=== PATIENT | male | born 1955 | race Caucasian/White ===

== ENCOUNTER 2021-03-19 02:18 | Inpatient (IN) | payer OTHER ==
[~2021-03-19] VITALS: Ht 152.4 cm; Wt 57.8 kg
[2021-03-19] VITALS (9 sets, daily range): BP systolic 86–116; BP diastolic 43–79
[2021-03-19 03:08] LABS: ABG A-A DIFF O2 85.1 mmHg (10-20.0); ABG BASE EXCESS -8.3 mmol/L (-2.0-3.0); ABG CARBOXYHEMOGLOBIN 1.2 % (0.0-1.5); ABG HCO3 18.2 mmol/L (22.0-26.0); ABG METHEMOGLOBIN 0.3 % (0.0-1.5); ABG OXYGEN CONTENT 14.7 mL/dL (15.0-23.0); ABG OXYHEMOGLOBIN 53.1 % (94.0-100.0); ABG PCO2 30 mmHg (35-45); ABG PH 7.369 (7.35-7.450); ABG TOTAL HEMOGLOBIN 19.8 G/dL (12.0-18.0); SOURCE, BLOOD GAS ARTERIAL; TEMPERATURE, FAHRENHEIT, BG 98.6 FAHREN (96.0-98.6)
[2021-03-19 03:09] LABS: ABG OXYGEN SATURATION 53.9 % (95.0-98.0); PO2, ARTERIAL BG 28.5 mmHg (79.0-87.0); SITE, BLOOD GAS RT RADIAL
[2021-03-19 03:27] LABS: BASOPHILS % (AUTO) 0.6 % (0.0-2.0); EOSINOPHILS % (AUTO) 0.1 % (1.0-6.0); HEMOGLOBIN 18.4 g/dL (13.5-17.5); LYMPHOCYTES # (AUTO) 1.2 K/uL (1.0-4.8); LYMPHOCYTES % (AUTO) 12.8 % (22.0-44.0); MEAN CORPUSCULAR HEMOGLOBIN 30.7 pg (26.0-34.0); MEAN CORPUSCULAR HGB CONC 32.7 G/dL (31.0-37.0); MEAN CORPUSCULAR VOLUME 94 fL (80-100); MONOCYTES # (AUTO) 0.9 K/uL (0.1-1.0); MONOCYTES % (AUTO) 9.7 % (2.0-9.0); NEUTROPHILS # (AUTO) 7.3 K/uL (1.8-7.7); NEUTROPHILS % (AUTO) 76.8 % (40.0-70.0); PLATELET COUNT (AUTO) 145 K/uL (150-450); RED BLOOD CELL COUNT(AUTO) 6.01 MIL/uL (4.50-5.90)
[2021-03-19 03:28] LABS: COVID AG,FIA SOURCE NASOPHARYNGEAL
[2021-03-19] MEDS ORDERED: DEXAMETHASONE SOD PHOS 4 MG/ML VIAL IVP ONE (03:30)
[2021-03-19] MEDS ORDERED: ACETAMINOPHEN 325 MG TABLET PO PRN ×2 (03:30→21:00)
[2021-03-19] MEDS ORDERED: ONDANSETRON HCL 4 MG/2 ML VIAL IVP PRN ×2 (03:30→21:00)
[2021-03-19 03:38] LABS: HEMATOCRIT 56.3 % (41-53)
[2021-03-19 03:39] LABS: ANION GAP 16 mmol/L (8-16); CALCIUM, TOTAL 8.7 mg/dL (8.8-10.5); CARBON DIOXIDE 21 mmol/L (22-29); CHLORIDE 101 mmol/L (98-107); CREATININE 2.63 mg/dL (0.60-1.30); GLOMERULAR FILTR. RATE CALC 24 mL/min (>60); GLUCOSE,RANDOM 121 mg/dL (70-110); POTASSIUM 4.6 mmol/L (3.5-5.1); SODIUM SERUM 138 mmol/L (136-145)
[2021-03-19 03:42] LABS: D-DIMER 1.48 mg/L FEU (0.00-0.50); PROTHROMBIN TIME 10.9 SEC (9.4-11.6)
[2021-03-19] MEDS ORDERED: ASPI81TA87 PO (03:42)
[2021-03-19] MEDS ORDERED: DIPH25CA85 PO (03:42)
[2021-03-19] MEDS ORDERED: PROM-163 PO (03:42)
[2021-03-19] MEDS ORDERED: ACET-66 PO (03:42)
[2021-03-19] MEDS ORDERED: IBUP-2124 PO (03:42)
[2021-03-19] MEDS ORDERED: ACET-784 PO (03:42)
[2021-03-19 04:02] LABS: B-TYPE NATRIURETIC PEPTIDE 187 pg/mL (0-100)
[2021-03-19 04:08] LABS: LACTIC ACID 2.2 mmol/L (0.4-2.0); UREA NITROGEN, BLOOD 102 mg/dL (7-18)
[2021-03-19 04:23] LABS: ALANINE AMINOTRANSFERASE 59 U/L (12-78); ALBUMIN 2.9 g/dL (3.4-5.0); ALKALINE PHOSPHATASE 93 U/L (46-116); ASPARTATE AMINOTRANSFERASE 97 U/L (15-37); BILIRUBIN,TOTAL 0.8 mg/dL (0.1-1.0); C-REACTIVE PROTEIN QUANT 24.13 mg/dL (0.00-0.30); FERRITIN 4487 ng/mL (26-388); LACTATE DEHYDROGENASE 878 U/L (85-227); TOTAL PROTEIN, SERUM 8.4 g/dL (6.4-8.2)
[2021-03-19 04:52] LABS: ABG BASE EXCESS -8.6 mmol/L (-2.0-3.0); ABG CARBOXYHEMOGLOBIN 0.3 % (0.0-1.5); ABG HCO3 18.7 mmol/L (22.0-26.0); ABG METHEMOGLOBIN 0.3 % (0.0-1.5); ABG OXYGEN CONTENT 22.4 mL/dL (15.0-23.0); ABG OXYHEMOGLOBIN 83.9 % (94.0-100.0); ABG PCO2 31 mmHg (35-45); ABG PH 7.356 (7.35-7.450); ABG TOTAL HEMOGLOBIN 19.1 G/dL (12.0-18.0); PO2, ARTERIAL BG 50.1 mmHg (79.0-87.0); SOURCE, BLOOD GAS ARTERIAL; TEMPERATURE, FAHRENHEIT, BG 98.6 FAHREN (96.0-98.6)
[2021-03-19 04:53] LABS: ABG OXYGEN SATURATION 84.4 % (95.0-98.0); SITE, BLOOD GAS RT BRACHIAL
[2021-03-19] MEDS: 0.9% SODIUM CHLORIDE 10 ML SYRINGE IVP PRN ×2 (04:59→05:56)
[2021-03-19] MEDS ORDERED: SODIUM CHLORIDE 0.9% 1,000 ML IV ONE (05:15)
[2021-03-19] MEDS ORDERED: SODIUM CHLORIDE 0.9% IV ONE (10:30)
[2021-03-19] MEDS ORDERED: TOCILIZUMAB IV ONE (10:30)
[2021-03-19] MEDS ORDERED: REMDESIVIR 200 MG in SODIUM CHLORIDE 0.9% 250 ML IV ONE (11:00)
[2021-03-19 11:40] LABS: ABG A-A DIFF O2 629.7 mmHg (10-20.0); ABG BASE EXCESS -10.7 mmol/L (-2.0-3.0); ABG CARBOXYHEMOGLOBIN 0.6 % (0.0-1.5); ABG HCO3 17.1 mmol/L (22.0-26.0); ABG METHEMOGLOBIN 0.3 % (0.0-1.5); ABG OXYGEN CONTENT 22.8 mL/dL (15.0-23.0); ABG OXYGEN SATURATION 92.1 % (95.0-98.0); ABG OXYHEMOGLOBIN 91.3 % (94.0-100.0); ABG PCO2 30 mmHg (35-45); ABG PH 7.329 (7.35-7.450); ABG TOTAL HEMOGLOBIN 17.8 G/dL (12.0-18.0); O2 DEVICE,BLOOD GAS BIPAP (ROOM AIR); PO2, ARTERIAL BG 59.2 mmHg (79.0-87.0); SITE, BLOOD GAS RT BRACHIAL; SOURCE, BLOOD GAS ARTERIAL; TEMPERATURE, FAHRENHEIT, BG 94.3 FAHREN (96.0-98.6)
[2021-03-19 11:41] LABS: INSPIRATORY TIME, BG 0.8 SEC
[2021-03-19 11:42] LABS: SPONTANEOUS VT, BG 361 ml
[2021-03-19] MEDS ORDERED: BISACODYL 10 MG RECTAL RECTAL SUPPOSITORY PR PRN (21:00)
[2021-03-19] MEDS ORDERED: MAGNESIUM HYDROXIDE SUSPENSION 30 ML UDCUP PO PRN (21:00)
[2021-03-19] MEDS ORDERED: IPRATROPIUM BROMIDE 0.5 MG/2.5 ML NEB SOLUTION NEB PRN (21:00)
[2021-03-19] MEDS ORDERED: ZOLPIDEM TARTRATE 5 MG TABLET PO PRN (21:00)
[2021-03-19] MEDS ORDERED: ALBUTEROL SULFATE 2.5 MG/0.5 ML NEB SOLUTION NEB PRN (21:00)
[2021-03-20] VITALS (11 sets, daily range): BP systolic 87–124; BP diastolic 51–80
[2021-03-20] MEDS: HEPARIN SODIUM,PORCINE 5,000 UNITS/ML VIAL SQ SCH ×3 (00:28→18:24)
[2021-03-20 05:32] LABS: HEMATOCRIT 53.7 % (41-53); HEMOGLOBIN 17.9 g/dL (13.5-17.5); MEAN CORPUSCULAR HEMOGLOBIN 30.8 pg (26.0-34.0); MEAN CORPUSCULAR HGB CONC 33.4 G/dL (31.0-37.0); MEAN CORPUSCULAR VOLUME 93 fL (80-100); PLATELET COUNT (AUTO) 166 K/uL (150-450); RED BLOOD CELL COUNT(AUTO) 5.81 MIL/uL (4.50-5.90); RED CELL DISTRIBUTION WIDTH 15.3 % (11.5-14.5)
[2021-03-20 06:22] LABS: BAND NEUTROPHILS % (MANUAL) 5 % (0-5); LYMPHOCYTES % (MANUAL) 12 % (22-44); METAMYELOCYTES % 2 % (0-0); MONOCYTES % (MANUAL) 9 % (2-9); MYELOCYTES % 1 % (0-0); REACTIVE LYMPHOCYTES 1 % (0-0); SEGMENTED NEUTROPHILS % 70 % (40-70)
[2021-03-20 06:36] LABS: ALBUMIN 2.6 g/dL (3.4-5.0); BILIRUBIN,TOTAL 0.6 mg/dL (0.1-1.0); C-REACTIVE PROTEIN QUANT 15.97 mg/dL (0.00-0.30); CALCIUM, TOTAL 8.1 mg/dL (8.8-10.5); CREATININE 2.15 mg/dL (0.60-1.30); POTASSIUM 5.1 mmol/L (3.5-5.1); TOTAL PROTEIN, SERUM 7.4 g/dL (6.4-8.2)
[2021-03-20] MEDS: PANTOPRAZOLE SODIUM 40 MG/VIAL IVP SCH (10:30)
[2021-03-20] MEDS: DEXAMETHASONE SOD PHOS 4 MG/ML VIAL IVP SCH (10:30)
[2021-03-20 11:56] LABS: APPEARANCE,URINE CLEAR (CLEAR); BILIRUBIN,URINE NEGATIVE (NEGATIVE); GLUCOSE, URINE (UA) NEGATIVE (NEGATIVE); KETONES,URINE TRACE mg/dL (NEGATIVE); LEUKOCYTE ESTERASE ,URINE NEGATIVE (NEGATIVE); NITRATE,URINE NEGATIVE (NEGATIVE); OCCULT BLOOD,URINE TRACE (NEGATIVE); PH,URINE 5.5 (5.0-8.0); PROTEIN,URINE SEE CONFIRM (NEGATIVE); UROBILINOGEN,URINE 0.2 mg/dL (<=1.0)
[2021-03-20 12:04] LABS: SULFOSALICYLIC ACID,URINE 2+ (Negative)
[2021-03-20 12:06] LABS: BACTERIA,URINE None Seen /HPF (None Seen); RBC,URINE None Seen /HPF (0-2); SQUAMOUS EPITHELIAL CELL,UR Few /LPF (None Seen); WBC,URINE 0-2 /HPF (0-5)
[2021-03-20] MEDS ORDERED: IBUP-2071 PO (13:05)
[2021-03-20] MEDS: REMDESIVIR 100 MG in SODIUM CHLORIDE 0.9% 250 ML IV SCH (18:40)
[2021-03-21 00:03] VITALS: BP 138/66
[2021-03-21] MEDS: HEPARIN SODIUM,PORCINE 5,000 UNITS/ML VIAL SQ SCH ×3 (00:41→15:36)
[2021-03-21] MEDS ORDERED: SODIUM CHLORIDE 0.9% 250 ML IV ONE (01:22)
[2021-03-21 04:02] VITALS: BP 98/57
[2021-03-21 06:18] LABS: BASOPHILS % (AUTO) 0.7 % (0.0-2.0); EOSINOPHILS % (AUTO) 0 % (1.0-6.0); HEMATOCRIT 52.8 % (41-53); HEMOGLOBIN 17.3 g/dL (13.5-17.5); LYMPHOCYTES # (AUTO) 0.6 K/uL (1.0-4.8); LYMPHOCYTES % (AUTO) 4.7 % (22.0-44.0); MEAN CORPUSCULAR HEMOGLOBIN 30.3 pg (26.0-34.0); MEAN CORPUSCULAR HGB CONC 32.7 G/dL (31.0-37.0); MEAN CORPUSCULAR VOLUME 93 fL (80-100); MONOCYTES # (AUTO) 0.7 K/uL (0.1-1.0); MONOCYTES % (AUTO) 5.5 % (2.0-9.0); NEUTROPHILS # (AUTO) 11.8 K/uL (1.8-7.7); PLATELET COUNT (AUTO) 198 K/uL (150-450); RED CELL DISTRIBUTION WIDTH 14.9 % (11.5-14.5)
[2021-03-21 06:43] LABS: NEUTROPHILS % (AUTO) 89.1 % (40.0-70.0)
[2021-03-21 07:14] LABS: ALBUMIN 2.8 g/dL (3.4-5.0); BILIRUBIN,TOTAL 0.6 mg/dL (0.1-1.0); C-REACTIVE PROTEIN QUANT 8.61 mg/dL (0.00-0.30); CALCIUM, TOTAL 8.5 mg/dL (8.8-10.5); CREATININE 1.92 mg/dL (0.60-1.30); POTASSIUM 5.4 mmol/L (3.5-5.1); TOTAL PROTEIN, SERUM 7.7 g/dL (6.4-8.2)
[2021-03-21 08:00] VITALS: BP 92/60
[2021-03-21] MEDS: PANTOPRAZOLE SODIUM 40 MG/VIAL IVP SCH (09:28)
[2021-03-21] MEDS: DEXAMETHASONE SOD PHOS 4 MG/ML VIAL IVP SCH (09:28)
[2021-03-21 12:00] VITALS: BP 78/54
[2021-03-21] MEDS: SODIUM CHLORIDE 0.9% 1,000 ML IV SCH (15:36)
[2021-03-21 16:00] VITALS: BP 110/82
[2021-03-21 17:04] LABS: APPEARANCE,URINE CLEAR (CLEAR); BILIRUBIN,URINE NEGATIVE (NEGATIVE); GLUCOSE, URINE (UA) NEGATIVE (NEGATIVE); KETONES,URINE TRACE mg/dL (NEGATIVE); LEUKOCYTE ESTERASE ,URINE NEGATIVE (NEGATIVE); NITRATE,URINE NEGATIVE (NEGATIVE); OCCULT BLOOD,URINE NEGATIVE (NEGATIVE); PH,URINE 5.5 (5.0-8.0); PROTEIN,URINE TRACE (NEGATIVE)
[2021-03-21 17:06] LABS: PROTEIN,URINE RANDOM 41 mg/dL (0-11.9); SODIUM,URINE RANDOM 56 mmol/l (20-110); UREA NITROGEN,URINE RANDOM 1279 mg/dL (350-1000)
[2021-03-21] MEDS: REMDESIVIR 100 MG in SODIUM CHLORIDE 0.9% 250 ML IV SCH (17:44)
[2021-03-21 20:03] VITALS: BP 135/86
[2021-03-22] VITALS (7 sets, daily range): BP systolic 99–145; BP diastolic 53–78
[2021-03-22] MEDS: HEPARIN SODIUM,PORCINE 5,000 UNITS/ML VIAL SQ SCH ×3 (00:04→16:35)
[2021-03-22] MEDS ORDERED: RAPID SEQUENCE KIT [RSI] 1 EACH KIT MISC ONE (04:18)
[2021-03-22 04:30] LABS: ABG A-A DIFF O2 620.8 mmHg (10-20.0); ABG BASE EXCESS -6.1 mmol/L (-2.0-3.0); ABG CARBOXYHEMOGLOBIN 0.6 % (0.0-1.5); ABG HCO3 20.3 mmol/L (22.0-26.0); ABG METHEMOGLOBIN 0.3 % (0.0-1.5); ABG OXYGEN CONTENT 21.7 mL/dL (15.0-23.0); ABG OXYGEN SATURATION 90.1 % (95.0-98.0); ABG OXYHEMOGLOBIN 89.3 % (94.0-100.0); ABG PCO2 33 mmHg (35-45); ABG PH 7.379 (7.35-7.450); ABG TOTAL HEMOGLOBIN 17.3 G/dL (12.0-18.0); PO2, ARTERIAL BG 59.2 mmHg (79.0-87.0); SOURCE, BLOOD GAS ARTERIAL; TEMPERATURE, FAHRENHEIT, BG 98.6 FAHREN (96.0-98.6)
[2021-03-22 04:31] LABS: O2 DEVICE,BLOOD GAS BIPAP (ROOM AIR); SITE, BLOOD GAS LFT RADIAL; SPONTANEOUS VT, BG 439 ml
[2021-03-22] MEDS: SODIUM CHLORIDE 0.9% 1,000 ML IV SCH ×2 (05:50→20:00)
[2021-03-22 07:28] LABS: ALBUMIN 2.5 g/dL (3.4-5.0); BILIRUBIN,TOTAL 0.8 mg/dL (0.1-1.0); C-REACTIVE PROTEIN QUANT 3.9 mg/dL (0.00-0.30); CALCIUM, TOTAL 7.7 mg/dL (8.8-10.5); CREATININE 1.65 mg/dL (0.60-1.30); POTASSIUM 4.9 mmol/L (3.5-5.1); TOTAL PROTEIN, SERUM 6.5 g/dL (6.4-8.2)
[2021-03-22] MEDS: DEXAMETHASONE SOD PHOS 4 MG/ML VIAL IVP SCH (09:23)
[2021-03-22] MEDS: PANTOPRAZOLE SODIUM 40 MG/VIAL IVP SCH (09:23)
[2021-03-22] MEDS: REMDESIVIR 100 MG in SODIUM CHLORIDE 0.9% 250 ML IV SCH (17:10)
[2021-03-23 04:30] VITALS: BP 120/77
[2021-03-23 08:05] LABS: BASOPHILS % (AUTO) 0.8 % (0.0-2.0); EOSINOPHILS % (AUTO) 0.1 % (1.0-6.0); LYMPHOCYTES # (AUTO) 0.7 K/uL (1.0-4.8); LYMPHOCYTES % (AUTO) 2.8 % (22.0-44.0); MEAN CORPUSCULAR HEMOGLOBIN 30.4 pg (26.0-34.0); MEAN CORPUSCULAR HGB CONC 32.6 G/dL (31.0-37.0); MEAN CORPUSCULAR VOLUME 93 fL (80-100); MONOCYTES # (AUTO) 0.2 K/uL (0.1-1.0); MONOCYTES % (AUTO) 0.7 % (2.0-9.0); NEUTROPHILS # (AUTO) 25.5 K/uL (1.8-7.7); PLATELET COUNT (AUTO) 256 K/uL (150-450); RED BLOOD CELL COUNT(AUTO) 6.24 MIL/uL (4.50-5.90); RED CELL DISTRIBUTION WIDTH 15.1 % (11.5-14.5)
[2021-03-23 08:22] LABS: HEMATOCRIT 58.3 % (41-53); NEUTROPHILS % (AUTO) 95.6 % (40.0-70.0)
[2021-03-23 08:32] VITALS: BP 101/62
[2021-03-23 09:01] LABS: BILIRUBIN,TOTAL 1.2 mg/dL (0.1-1.0); CALCIUM, TOTAL 8.8 mg/dL (8.8-10.5); CREATININE 1.9 mg/dL (0.60-1.30); TOTAL PROTEIN, SERUM 7.6 g/dL (6.4-8.2)
[2021-03-23] MEDS ORDERED: DEXTROSE 50%-WATER 25 GM/50 ML SYRINGE IVP ONE (09:45)
[2021-03-23] MEDS ORDERED: INSULIN REGULAR, HUMAN 100 UNITS/ML IVP ONE (09:45)
[2021-03-23] MEDS: DEXAMETHASONE SOD PHOS 4 MG/ML VIAL IVP SCH (10:41)
[2021-03-23] MEDS: PANTOPRAZOLE SODIUM 40 MG/VIAL IVP SCH (10:41)
[2021-03-23] MEDS: HEPARIN SODIUM,PORCINE 5,000 UNITS/ML VIAL SQ SCH ×4 (10:41→23:49)
[2021-03-23] MEDS: SODIUM CHLORIDE 0.9% 1,000 ML IV SCH (10:43)
[2021-03-23] MEDS ORDERED: SODIUM ZIRCONIUM CYCLOSILICATE 5 GM POWDER PACKET PO ONE (11:45)
[2021-03-23 12:11] VITALS: BP 118/64
[2021-03-23] MEDS ORDERED: MORPHINE SULFATE 2 MG/ML SYRINGE IVP PRN (14:00)
[2021-03-23 16:34] VITALS: BP 139/89
[2021-03-23] MEDS ORDERED: LORazepam 2 MG/ML VIAL IM PRN (16:45)
[2021-03-23] MEDS: MORPHINE SULFATE 2 MG/ML SYRINGE IM PRN (17:22)
[2021-03-23] MEDS: SODIUM ZIRCONIUM CYCLOSILICATE 5 GM POWDER PACKET PO SCH ×2 (17:22→20:23)
[2021-03-23] MEDS: REMDESIVIR 100 MG in SODIUM CHLORIDE 0.9% 250 ML IV SCH (18:00)
[2021-03-23 20:02] VITALS: BP 112/80
[2021-03-23 20:06] LABS: S PNEUMO SOURCE Urine; STREP PNEUMONIAE AG URINE Negative (Negative)
[2021-03-23 23:06] LABS: LEGIONELLA PNEUMO AG URINE Negative (Negative)
[2021-03-24] MEDS: SODIUM CHLORIDE 0.9% 1,000 ML IV SCH (00:12)
[2021-03-24 00:20] VITALS: BP 120/82
[2021-03-24] MEDS: MORPHINE SULFATE 2 MG/ML SYRINGE IM PRN (01:07)
[2021-03-24 04:52] VITALS: BP 101/75
[2021-03-24 07:58] VITALS: BP 139/63
[2021-03-24 08:02] LABS: HEMOGLOBIN 18.1 g/dL (13.5-17.5); MEAN CORPUSCULAR HGB CONC 31.9 G/dL (31.0-37.0); MEAN CORPUSCULAR VOLUME 94 fL (80-100); PLATELET COUNT (AUTO) 198 K/uL (150-450); RED BLOOD CELL COUNT(AUTO) 6.03 MIL/uL (4.50-5.90); RED CELL DISTRIBUTION WIDTH 14.9 % (11.5-14.5)
[2021-03-24 08:05] LABS: HEMATOCRIT 56.7 % (41-53)
[2021-03-24 08:43] LABS: CALCIUM, TOTAL 8.3 mg/dL (8.8-10.5); CREATININE 2.19 mg/dL (0.60-1.30); MAGNESIUM 2.5 mg/dL (1.80-2.40); PHOSPHORUS 5.3 mg/dL (2.5-4.9); POTASSIUM 5.7 mmol/L (3.5-5.1)
[2021-03-24 09:16] LABS: BAND NEUTROPHILS % (MANUAL) 24 % (0-5); LYMPHOCYTES % (MANUAL) 1 % (22-44); MONOCYTES % (MANUAL) 2 % (2-9); SEGMENTED NEUTROPHILS % 73 % (40-70)
== END 2021-03-24 10:24 | DRG 177 ==
LOC: EMS 02:24 → ICU 03:28 → 5N 03-22 18:00
PROVIDERS: ADMIT Hospitalist; ATTEND Hospitalist
PROC: 5A09557 Assistance with Respiratory Ventilation, Greater than 96 Consecutive Hours, Continuous Positive Airway Pressure (ICD-10-PCS; principal; 2021-03-19)
PROC: XW033E5 Introduction of Remdesivir Anti-infective into Peripheral Vein, Percutaneous Approach, New Technology Group 5 (ICD-10-PCS; 2021-03-19)
PROC: XW033H5 Introduction of Tocilizumab into Peripheral Vein, Percutaneous Approach, New Technology Group 5 (ICD-10-PCS; 2021-03-19)
DX: U07.1 COVID-19 (principal); J12.82 Pneumonia due to coronavirus disease 2019; J96.01 Acute respiratory failure with hypoxia; E43 Unspecified severe protein-calorie malnutrition; J44.0 Chronic obstructive pulmonary disease with (acute) lower respiratory infection; J44.1 Chronic obstructive pulmonary disease with (acute) exacerbation; N17.9 Acute kidney failure, unspecified; D68.59 Other primary thrombophilia; E78.5 Hyperlipidemia, unspecified; E87.5 Hyperkalemia; I25.10 Atherosclerotic heart disease of native coronary artery without angina pectoris; Z66 Do not resuscitate; R79.89 Other specified abnormal findings of blood chemistry; R74.02 Elevation of levels of lactic acid dehydrogenase [LDH]; R79.82 Elevated C-reactive protein (CRP); R74.8 Abnormal levels of other serum enzymes; Z87.891 Personal history of nicotine dependence; Z95.1 Presence of aortocoronary bypass graft; Z79.82 Long term (current) use of aspirin; Z68.24 Body mass index [BMI] 24.0-24.9, adult
CPT/HCPCS: 36600; 71045; 76770; 80048; 80053; 81001; 81002; 82570; 82728; 82805; 83605; 83615; 83735; 83880; 84100; 84145; 84156; 84300; 84484; 84540; 85025; 85379; 85610; 85730; 86140; 87040; 87081; 87449; 87899; 93005; 94660; 99291; C9113; G0238; G0378; J1100; J1644; J1815; J2270; J7030; J7050; Q9967; 36415-L1; 36415-TC; U0003